=== PATIENT | male | born 1970 | race Caucasian/White ===

== ENCOUNTER → 2019-07-16 07:33 | Outpatient (CLI) | payer BC, SELFPAY ==
[2019-07-16 08:29] LABS: Alanine Aminotransferase 29 IU/L (<50); Albumin 4.4 g/dL (3.5-5.0); Albumin Globulin Ratio 1.6 (1.0-2.8); Alkaline Phosphatase 61 U/L (38-126); Aspartate Aminotransferase 32 IU/L (17-59); Bilirubin Total 0.7 mg/dL (0.2-1.3); Blood Urea Nitrogen 18 mg/dL (9-20); Calcium 9.1 mg/dL (8.4-10.2); Carbon Dioxide 30 mmol/L (22-32); Chloride 101 mmol/L (98-107); Cholesterol 196 mg/dL (140-199); Estimated Glomerular Filt Rate > 60.0 mL/min (>60); Globulin 2.7 g/dL (1.7-4.1); Glucose 89 mg/dL (70-100); HDL Cholesterol 41 mg/dL (40-60); HEMOLYSIS < 15 (0-50); LDL Cholesterol Calculated 141 mg/dL (<100); Potassium 3.8 mmol/L (3.4-5.1); Sodium 139 mmol/L (137-145); Total Protein 7.1 g/dL (6.3-8.2); Triglycerides 70 mg/dL (35-150)
== END ==
PROVIDERS: PCP Internal Medicine; Visit Provider Internal Medicine
DX: I10 Essential (primary) hypertension (principal); Z13.1 Encounter for screening for diabetes mellitus; Z13.220 Encounter for screening for lipoid disorders; Z13.6 Encounter for screening for cardiovascular disorders
CPT/HCPCS: 36415; 80053; 80061

== ENCOUNTER → 2020-01-29 07:56 | Outpatient (CLI) | payer BC, SELFPAY ==
--- NOTE | 2020-01-29 07:57 | DI.MRI.S_ITS ---
PROCEDURE: MR KNEE RT WO CON INDICATIONS: right knee TECHNIQUE: Noncontrast sagittal PD fast spin echo and T2 fast spin echo with fat saturation, sagittal 3-D FLASH with fat saturation; coronal T1 spin echo and PD fast spin echo with fat saturation, and axial PD fast spin echo with fat saturation through the knee. COMPARISON: None. FINDINGS: Image quality: Excellent. Menisci: Complex oblique tear is seen involving posterior horn of medial meniscus extending to both superior and inferior articulating surfaces. There is no evidence of focal lateral meniscal tear. Peripheral displacement of medial meniscus is seen bowing medial collateral ligament. The meniscal root ligaments appear intact. Cruciate ligaments: The anterior and posterior cruciate ligaments appear intact. Medial structures: There is low to moderate grade MCL sprain. The posterior oblique ligament, semimembranosus tendon insertions, oblique popliteal ligament, and meniscocapsular junction appear intact. Visualized portions of the pes anserinus tendons appear normal. No abnormal bursal fluid. Lateral structures: The lateral collateral ligament, long and short heads of the biceps femoris tendon appear intact. The popliteus tendon appears normal; the popliteofibular ligament appears intact. The posterosuperior and anteroinferior popliteomeniscal fascicles appear intact. The arcuate and fabellofibular ligaments appear intact, on either side of the lateral inferior geniculate artery. Iliotibial band appears normal. Anterior structures: The quadriceps and patellar tendons appear intact. Patellar alignment is normal. No femoral trochlear dysplasia or ventral trochlear prominence. No edema in the infrapatellar fat pad. Bones and cartilage: No bone marrow contusions or fractures. The cartilage of the medial and lateral femorotibial compartments appears normal in thickness. 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 Joint space: There is small amount of knee joint fluid, no gross intra-articular loose body. 3 x 2.6 x 5.7 cm popliteal cyst is seen. Normal appearing synovial plicae are incidentally noted. IMPRESSION: 1. Complex tear involving posterior horn of medial meniscus extending to both superior and inferior articulating surfaces. No evidence of focal lateral meniscal tear. 2. Cruciate ligaments are intact. Low to moderate grade MCL sprain. 3. 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 4. Small amount of joint fluid. Popliteal cyst as above. Dictated by: Dorian Hyde M.D. on 01/30/2020 at 11:29 Approved by: Dorian Hyde M.D. on 01/30/2020 at 11:34
== END ==
PROVIDERS: PCP Internal Medicine; Referring Provider Internal Medicine; Visit Provider Internal Medicine
DX: M25.561 Pain in right knee (principal); S83.231A Complex tear of medial meniscus, current injury, right knee, initial encounter; S83.411A Sprain of medial collateral ligament of right knee, initial encounter; M22.41 Chondromalacia patellae, right knee; M71.21 Synovial cyst of popliteal space [Baker], right knee
CPT/HCPCS: 73721

== ENCOUNTER → 2020-10-19 13:24 | Outpatient (CLI) | payer OTHER, SELFPAY ==
[2020-10-19] MEDS: COVID-19 VACC #1, MRNA(MOD) 100 MCG/0.5 ML VIAL IM (13:28)
== END ==
PROVIDERS: PCP Internal Medicine; Visit Provider Internal Medicine
DX: Z23 Encounter for immunization (principal)
CPT/HCPCS: 0011A; 91301

== ENCOUNTER → 2020-11-07 09:33 | Outpatient (CLI) | payer OTHER, SELFPAY ==
[2020-11-07 10:23] LABS: Alanine Aminotransferase 27 IU/L (<50); Albumin 4.3 g/dL (3.5-5.0); Albumin Globulin Ratio 1.4 (1.0-2.8); Alkaline Phosphatase 55 U/L (38-126); Aspartate Aminotransferase 32 IU/L (17-59); BUN Creatinine Ratio 15.7 (6-22); Bilirubin Total 0.6 mg/dL (0.2-1.3); Blood Urea Nitrogen 13 mg/dL (9-20); Calcium 9.3 mg/dL (8.4-10.2); Carbon Dioxide 30 mmol/L (22-32); Chloride 104 mmol/L (98-107); Estimated Glomerular Filt Rate > 60.0 mL/min (>60); Glucose 102 mg/dL (70-100); HEMOLYSIS < 15 (0-50); Potassium 4.4 mmol/L (3.4-5.1); Sodium 140 mmol/L (137-145); Total Protein 7.3 g/dL (6.3-8.2)
[2020-11-07 10:38] LABS: Free T4, Direct Thyroxine 0.98 ng/dL (0.78-2.19)
[2020-11-07 10:52] LABS: Thyroid Stimulating Hormone 2.39 uIU/mL (0.47-4.68)
== END ==
PROVIDERS: PCP Internal Medicine; Referring Provider Internal Medicine; Visit Provider Internal Medicine
DX: I10 Essential (primary) hypertension (principal)
CPT/HCPCS: 36415; 80053; 84439; 84443

== ENCOUNTER → 2020-11-16 13:16 | Outpatient (CLI) | payer OTHER, SELFPAY ==
[2020-11-16] MEDS: COVID-19 VACC #2, MRNA(MOD) 100 MCG/0.5 ML VIAL IM (13:18)
== END ==
PROVIDERS: PCP Internal Medicine; Visit Provider Internal Medicine
DX: Z23 Encounter for immunization (principal)
CPT/HCPCS: 0012A; 91301

== ENCOUNTER 2021-10-30 19:28 | Inpatient (IN) | payer OTHER, SELFPAY ==
[2021-10-30] VITALS (15 sets, daily range): BP systolic 129–158; BP diastolic 78–100; PULSE 68–124; RESP 12–37; TEMP 36.8–37.3; O2SAT 2–100; BMI 26.5
--- NOTE | 2021-10-30 | DI.ECHO.S_ITS ---
[facility] +---------+ : : [address] : : : : [id number] : : : : Phone: [phone]+ Echocardiogram Report + + :Name: TALAT GRAVES Study Date: 10/31/2021 Height: 70 in : :[facility] ReadingLocation: Weight: 185 lb : : Gender: Male BSA: 2.0 m2 : :: 1970 Age: 50 yrs BP: 119/69 mmHg: :Reason For Study: ADMITTED FOR INFARCTED SMALL BOWEL, RULE OUT : :EMBOLISM : :Ordering Physician: ALEXANDREA, : :CESAR Performed By: Dilcia Arias : :Referring: CESRA LECHUGA : + + Interpretation Summary A two-dimensional transthoracic echocardiogram with color flow and Doppler was performed in limited views only to assess rule out embolism. The left ventricle is normal in size and wall thickness. The ejection fraction is estimated to be 65-70%. No LV thrombus. The right ventricle is normal in size and function. Injection of contrast documented no interatrial shunt. There is no Doppler evidence for an interatrial shunt. Procedure: A two-dimensional transthoracic echocardiogram with color flow and Doppler was performed in limited views only to assess rule out embolism. The study quality was technically adequate. There is no prior echocardiogram noted for this patient. A saline contrast injection was performed to assess for cardiac shunting. The patient was in sinus rhythm with heart rates between 76-80 bpm during the exam. Left Ventricle: The left ventricle is normal in size and wall thickness. There is no thrombus. The ejection fraction is estimated to be 65-70%. There are no focal wall motion abnormalities. Diastolic function could not be accurately assessed due to unobtainable data. Right Ventricle: The right ventricle is normal in size and function. Atria: The left atrium is mildly dilated. Right atrial size is normal. There is no Doppler evidence for an interatrial shunt. Injection of contrast documented no interatrial shunt. Mitral Valve: The mitral valve leaflets appear borderline thickened, but open well. No color Doppler was performed. Aortic Valve: The aortic valve is trileaflet. The aortic valve opens well. Tricuspid Valve: The tricuspid valve is normal in structure and function. There is trace tricuspid regurgitation. Pericardium/ Pleura There is no pericardial effusion. There is no pleural effusion. MMode/2D Measurements & Calculations LVIDd: 5.6 cm LA A2 area: 24.4 cm2 LVIDs: 3.4 cm LA A4 area: 19.2 cm2 FS: 38.6 % LA length (vol): 5.1 cm IVSd: 0.92 cm LA vol: 77.6 ml LVPWd: 0.96 cm LA vol index: 38.4 ml/m2 LV cage. diameter/BSA (cm/m^2): 2.8 LV sys. diameter/BSA (cm/m^2): 1.7 RA long axis: 5.2 cm RVD1 (basal): 3.0 cm RA area: 15.9 cm2 TAPSE: 2.5 cm RA vol: 40.8 ml RA : 20.2 ml/m2 Reading Physician:01:18 PM
--- NOTE | 2021-10-30 | PATH_ITS ---
[facility] Accession Number: [id number] . 01 Material submitted: . small bowel - SMALL BOWEL . 02 Diagnosis: Small Bowel, Biopsy: Segment of small bowel with features of mucosal ischemia. Histologically viable margins of resection. Negative for dysplasia or malignancy. MRV 11/05/2021 1234 Local . 02 Electronically signed: . Otoniel Bob MD, PhD, Pathologist NPI- [id number] . 01 Gross description: . The specimen is received in formalin, labeled small bowel, and consists of a segment of unoriented bowel measuring 22.5 cm length by 2.5 cm diameter, with an average wall thickness of 0.2 cm. One bowel margin is arbitrarily assigned as proximal, and the opposing bowel margin is arbitrarily assigned as distal. The specimen's entire external surface is dusky, consistent with ischemic changes. Opening the specimen reveals hemorrhagic to dusky mucosa with normal folds. No other lesions or masses are identified grossly. There is grossly viable tissue at the distal margin. The tissue at the proximal margin is dusky. The specimen is representatively submitted as follows: . A1: Proximal margin, shaved, en face. A2: Distal margin, shaved, en face. A3: Biological Technician cross sections of specimen. ([id number]) /MRV 11/02/2021 1148 Local . 02 Pathologist provided ICD-10: K55.029 . 02 CPT . 831056 Specimen Comment: A courtesy copy of this report has been sent to [phone] Performed at: 01 [facility] [address] [place] [address], [place], [place] [id number] MD Levon Anthony MD Phone: [phone] Performed at: 02 [facility] [address] [place] [id number] MD Carlita Palmer MD Phone: [phone]
--- NOTE | 2021-10-30 19:42 | DI.CT.S_ITS ---
PROCEDURE: CT ABDOMEN PELVIS W CON INDICATIONS: acute onset severe mid abd pain TECHNIQUE: After the administration of intravenous contrast, axial sections acquired from the lung bases to the pubic symphysis. Coronal and sagittal reformats were performed. For radiation dose reduction, the following was used: automated exposure control, adjustment of mA and/or kV according to patient size. COMPARISON: None. FINDINGS: Image quality: Excellent. Lung bases: Lung bases are clear. Small hiatal hernia. Heart: No significant findings. ABDOMEN: Liver: Unremarkable Gallbladder: Unremarkable Biliary ducts: Unremarkable. Pancreas: Unremarkable. Spleen: Unremarkable. Adrenal Glands: Unremarkable. Kidneys and Ureters: Unremarkable. Stomach and Bowel: There is small bowel dilatation with wall edema and mesenteric edema noted in the upper right abdomen with differential air-fluid level. A transition point is noted in the right mid abdomen. This is best seen on coronal image 25/series 4. Otherwise, there is some prominence of the proximal small bowel. Stomach and colon appear unremarkable. Peritoneum: No abnormal intraperitoneal fluid. No free air. Ventral Wall: No hernias. Abdominal Nodes: No retroperitoneal or mesenteric adenopathy by size criteria. Vessels: Aorta and inferior vena cava are normal in size. PELVIS: Pelvic Organs: Unremarkable. Bladder: Unremarkable. Pelvic Nodes: No enlarged lymph nodes. Miscellaneous: No hernias are seen. Bones: Unremarkable. IMPRESSION: 1. Moderate small-bowel obstruction with transition point noted in the right mid abdomen. There is associated mesenteric edema and wall inflammation. 2. Small hiatal hernia. Findings discussed with Dr. Krishnamurthy at 2018hrs. Dictated by: Hima Antony M.D. on 10/30/2021 at 20:03 Approved by: Hima Antony M.D. on 10/30/2021 at 20:18
--- NOTE | 2021-10-30 19:43 | ED_ITS ---
HPI - General Adult General Chief complaint: Abdominal Pain Stated complaint: abd pain x45 min Time Seen by Provider: 10/30/21 19:41 Source: patient Mode of arrival: Ambulatory History of Present Illness HPI narrative: 50-year-old gentleman history of hypertension and depression with having a usual day today, went for a run had dinner of steak and salad and then developed severe mid abdominal pain dramatic onset causing significant diaphoresis, he vomited all of dinner in comes into the ER for further evaluation. He is quite literally, writhing in pain with firm belly and concerns for an acute abdomen. He denies any recent fever, cough, chills, chest pain, palpitation, diarrhea, constipation. Related Data Home Medications Medication Instructions Recorded Confirmed amlodipine 10 mg tablet 10 mg PO QPM 10/30/21 10/30/21 Previous Rx's Medication Instructions Recorded citalopram 40 mg tablet 40 mg PO QDAY #90 tab 09/10/21 bupropion HCl 150 mg 24 hr tablet, 150 mg PO QAM #30 tab 09/17/21 extended release Allergies Allergy/AdvReac Type Severity Reaction Status Date / Time No Known Drug Allergies Allergy Verified 10/30/21 21:06 Review of Systems Review of Systems Narrative: Remainder of complete review of systems is otherwise unremarkable except for that included in the HPI. 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 travel history: recent ([place]) leisure activities: exercise (Running) Smoking Status: Never smoker Tobacco: How many years used: 0 quit status: quit date established (Never Started) second hand exposure: Yes (Childhood) alcohol intake: never substance use type: does not use Smoking Status: Never smoker Exam Initial Vital Signs Initial Vital Signs: Vital Signs Temperature 98.5 F 10/30/21 19:33 Pulse Rate 122 H 10/30/21 19:33 Respiratory Rate 22 10/30/21 19:33 Blood Pressure 158/100 H 10/30/21 19:33 Pulse Oximetry 98 10/30/21 19:33 General: Severe pain, pale diaphoretic trying to cooperate but having difficulty lying still on the stretcher secondary to pain HEENT: Moist mucous membranes, normal sclera with reactive pupils, Respiratory: Lungs are clear to auscultation, no wheezing no rales no rhonchi. Full and symmetrical air movement Cardiac: Tachycardia but otherwise Regular rate and rhythm no murmurs no bruits Abdomen: Significantly tender with the majority pain through the central part of the belly with guarding, no bowel tones Skin: Pale and diaphoretic,, no rashes Neurologic: Grossly neurologically intact with no obvious asymmetries or abnormalities Extremities: No trauma, well perfused Psych: Cooperative, appropriate insight and affect Course Orders Ordered: ED Orders 10/30/21 19:42 CT abdomen pelvis w con Stat 10/30/21 19:50 Complete Blood Count AUTO DIFF Stat Comprehensive Metabolic Panel Stat Lipase Stat Partial Thromboplastin Time Stat Prothrombin Time INR Stat 10/30/21 20:05 COVID19 -Nasal RAPID/Pre-Proc Stat Amlodipine Besylate (Amlodipine 5 Mg Tablet) 10 mg PO QPM [facility] Bupropion HCl (Bupropion Xl 150 Mg Tab) 150 mg PO DAILY [facility] Last Admin: 10/31/21 01:27 Dose: Not Given Documented by: GILBERTO Citalopram Hydrobromide (Citalopram 10 Mg Tablet) 40 mg PO DAILY [facility] Enoxaparin Sodium (Enoxaparin 30 Mg/0.3 Ml Syringe) 40 mg SUBCUT DAILY [facility] Hydromorphone HCl (Hydromorphone 0.5 Mg Inj) 1 mg IV Q15MIN PRN PRN Reason: Pain, Last Admin: 10/30/21 21:16 Dose: 1 mg Documented by: Admin: 10/30/21 20:47 Dose: 1 mg Documented by: CLEVE Hydromorphone HCl (Hydromorphone 0.5 Mg Inj) 0.5 mg IV Q2H PRN PRN Reason: Breakthrough pain only (8-10) Lactated Ringer's (Lactated Ringers) 1,000 mls @ 42 mls/hr IV NOW ONE Stop: 10/31/21 21:38 Last Infusion: 10/30/21 23:44 Dose: 0 mls/hr Documented by: Admin: 10/30/21 22:15 Dose: 42 mls/hr Documented by: Infusion: 10/30/21 22:15 Dose: 42 mls/hr Documented by: Admin: 10/30/21 21:30 Dose: 42 mls/hr Documented by: ALEXA Lactated Ringer's (Lactated Ringers) 1,000 mls @ 100 mls/hr IV CONT [facility] Last Admin: 10/31/21 00:51 Dose: 100 mls/hr Documented by: GILBERTO Ketorolac Tromethamine (Ketorolac 30 Mg/Ml Vial) 30 mg IV Q6H [facility] Stop: 11/02/21 22:59 Last Admin: 10/31/21 01:36 Dose: 30 mg Documented by: GILBERTO Naloxone HCl (Naloxone 0.4 Mg/Ml Vial) 0.2 mg IV Q2MIN PRN PRN Reason: Opiate Reversal Ondansetron HCl (Ondansetron 4 Mg/2 Ml Inj) 4 mg IV Q8HR PRN PRN Reason: Nausea And Vomiting Oxycodone HCl (Oxycodone Ir 5 Mg Tablet) 5 mg PO Q4HR PRN PRN Reason: Pain, Moderate (4-6) Discontinued Medications Bupivacaine HCl 30 ml/ (Epinephrine HCl 0.15 mg) 0 ml INJ NOW ONE Stop: 10/30/21 22:08 Last Admin: 10/30/21 22:08 Dose: 30 ml Documented by: CEDRICK Enoxaparin Sodium (Enoxaparin 30 Mg/0.3 Ml Syringe) 30 mg SUBCUT DAILY [facility] Hydromorphone HCl (Hydromorphone 1 Mg Inj) 1 mg IV NOW ONE Stop: 10/30/21 19:42 Last Admin: 10/31/21 02:02 Dose: Not Given Documented by: GILBERTO Hydromorphone HCl (Hydromorphone 1 Mg Inj) 1 mg IV NOW ONE Stop: 10/30/21 20:15 Last Admin: 10/30/21 20:28 Dose: 1 mg Documented by: OSCAR Sodium Chloride (Normal Saline 0.9%) 1,000 mls @ 1,000 mls/hr IV BOLUS ONE Stop: 10/30/21 20:40 Last Admin: 10/30/21 20:29 Dose: 1,000 mls/hr Documented by: OSCAR Piperacillin Sod/Tazobactam (Sod 4.5 gm/ Sodium Chloride) 100 mls @ 200 mls/hr IV NOW ONE Stop: 10/30/21 20:40 Last Infusion: 10/30/21 21:29 Dose: 0 mls/hr Documented by: Admin: 10/30/21 21:02 Dose: 200 mls/hr Documented by: OSCAR Non-Formulary Medication (Citalopram) 40 mg PO QDAY EMMANUEL Ondansetron HCl (Ondansetron 4 Mg/2 Ml Inj) 4 mg IV NOW ONE Stop: 10/30/21 19:39 Last Admin: 10/31/21 02:02 Dose: Not Given Documented by: GILBERTO Ondansetron HCl (Ondansetron 4 Mg/2 Ml Inj) 4 mg IV NOW ONE Stop: 10/30/21 19:42 Last Admin: 10/30/21 21:16 Dose: 4 mg Documented by: OSCAR Vital Signs Vital signs: Vital Signs - 8 hr 10/30/21 19:33 10/30/21 19:38 10/30/21 20:00 Temperature 98.5 F 99.1 F Pulse Rate 122 H 105 H 74 Respiratory Rate 22 12 Blood Pressure 158/100 H 131/80 Pulse Oximetry 98 96 100 10/30/21 20:02 10/30/21 20:23 10/30/21 20:30 Temperature Pulse Rate 73 75 68 Respiratory Rate 37 H 22 17 Blood Pressure 154/98 H 129/89 Pulse Oximetry 99 100 99 10/30/21 20:34 10/30/21 21:00 Temperature Pulse Rate 75 71 Respiratory Rate 36 H 28 H Blood Pressure 151/92 H Pulse Oximetry 100 100 Medical Decision Making Lab Data Result diagrams: 10/30/21 19:50 10/30/21 19:50 Labs: Lab Results 10/30/21 10/30/21 10/30/21 Range/Units 19:50 19:50 19:50 WBC 6.6 (4.5-11.0) X10^3/uL RBC 5.13 (4.5-5.9) X10^6/uL Hgb 14.9 (13.5-17.5) g/dL Hct 42.6 (41-53) % MCV 83.1 (80-100) fL MCH 29.1 (26-34) PG MCHC 35.0 (30-36) % RDW 12.7 (11.6-14.8) % Plt Count 220 (150-400) X10^3/uL Neut % (Auto) 49.2 L (50-75) % Lymph % (Auto) 37.1 (25-40) % [place] % (Auto) 9.7 (3-14) % Eos % (Auto) 3.2 (2-4) % Baso % (Auto) 0.8 (0-2) % Neut # (Auto) 3200 (8374-0620) /uL Lymph # (Auto) 2400 (7426-5669) /uL [place] # (Auto) 600 (0-900) /uL Eos # (Auto) 200 (0-450) /uL Baso # (Auto) 100 (0-100) /uL PT 11.1 (10.1-12.7) SECONDS INR 1.0 (0.9-1.3) APTT 33 (26.4-36.2) SECONDS Sodium 137 (137-145) mmol/L Potassium 3.5 (3.4-5.1) mmol/L Chloride 104 (98-107) mmol/L Carbon Dioxide 21 L (22-32) mmol/L BUN 19 (9-20) mg/dL Creatinine 1.20 (0.66-1.25) mg/dL Estimated GFR > 60 (>60) mL/min BUN/Creatinine Ratio 15.8 (6-22) Glucose 119 H (70-100) mg/dL Calcium 9.0 (8.4-10.2) mg/dL Total Bilirubin 0.6 (0.2-1.3) mg/dL AST 58 (17-59) IU/L ALT 29 (<50) IU/L Alkaline Phosphatase 62 (38-126) U/L Total Protein 7.5 (6.3-8.2) g/dL Albumin 4.6 (3.5-5.0) g/dL Globulin 2.9 (1.7-4.1) g/dL Albumin/Globulin Ratio 1.6 (1.0-2.8) Lipase 303 H (23-300) U/L SARS-CoV-2 (PCR) (Negative) 10/30/21 Range/Units 20:05 WBC (4.5-11.0) X10^3/uL RBC (4.5-5.9) X10^6/uL Hgb (13.5-17.5) g/dL Hct (41-53) % MCV (80-100) fL MCH (26-34) PG MCHC (30-36) % RDW (11.6-14.8) % Plt Count (150-400) X10^3/uL Neut % (Auto) (50-75) % Lymph % (Auto) (25-40) % [place] % (Auto) (3-14) % Eos % (Auto) (2-4) % Baso % (Auto) (0-2) % Neut # (Auto) (2904-7766) /uL Lymph # (Auto) (0249-4485) /uL [place] # (Auto) (0-900) /uL Eos # (Auto) (0-450) /uL Baso # (Auto) (0-100) /uL PT (10.1-12.7) SECONDS INR (0.9-1.3) APTT (26.4-36.2) SECONDS Sodium (137-145) mmol/L Potassium (3.4-5.1) mmol/L Chloride (98-107) mmol/L Carbon Dioxide (22-32) mmol/L BUN (9-20) mg/dL Creatinine (0.66-1.25) mg/dL Estimated GFR (>60) mL/min BUN/Creatinine Ratio (6-22) Glucose (70-100) mg/dL Calcium (8.4-10.2) mg/dL Total Bilirubin (0.2-1.3) mg/dL AST (17-59) IU/L ALT (<50) IU/L Alkaline Phosphatase (38-126) U/L Total Protein (6.3-8.2) g/dL Albumin (3.5-5.0) g/dL Globulin (1.7-4.1) g/dL Albumin/Globulin Ratio (1.0-2.8) Lipase (23-300) U/L SARS-CoV-2 (PCR) Negative (Negative) Imaging Data CT scan - abdomen/pelvis: Radiologist's Impression: ?FINDINGS:? Image quality:? Excellent.? ? Lung bases:? Lung bases are clear.? Small hiatal hernia. Heart:? No significant findings. ? ABDOMEN: Liver:? Unremarkable Gallbladder:? Unremarkable Biliary ducts:? Unremarkable.? ? Pancreas:? Unremarkable.? ? Spleen:? Unremarkable.? ? Adrenal Glands:? Unremarkable.? ? Kidneys and Ureters:? Unremarkable.? ? ? Stomach and Bowel:? There is small bowel dilatation with wall edema and mesenteric edema noted in the upper right abdomen with differential air-fluid level.? A transition point is noted in the right mid abdomen.? This is best seen on coronal image 25/series 4. Otherwise, there is some prominence of the proximal small bowel.? Stomach and colon appear unremarkable. Peritoneum:? No abnormal intraperitoneal fluid.? No free air.? ? Ventral Wall: ? No hernias.? Abdominal Nodes:? No retroperitoneal or mesenteric adenopathy by size criteria.? Vessels:? Aorta and inferior vena cava are normal in size.? ? PELVIS: Pelvic Organs:? Unremarkable.? ? Bladder:? Unremarkable.? ? Pelvic Nodes: No enlarged lymph nodes.? Miscellaneous: No hernias are seen. ? ? ? Bones:? Unremarkable. ? ? ? IMPRESSION:? ? 1. Moderate small-bowel obstruction with transition point noted in the right mid abdomen. ?There is associated mesenteric edema and wall inflammation.? ? 2. Small hiatal hernia. ? Findings discussed with Dr. Krishnamurthy at 2018hrs.? ? Dictated by: Hima Antony M.D. on 10/30/2021 at 20:03? ?? [facility] Narrative Medical decision making narrative: Otherwise healthy 50-year-old gentleman with abrupt onset severe abdominal pain with CT scan showing acute small bowel obstruction with bowel wall inflammation. Pain has been difficult to control. We have been using moderate doses of Dilaudid and have added ketamine as a pain adjunct. Case is reviewed with Dr. Naylor who will be coming in to examine the patient with the expectation of exploratory laparotomy. Dose of Zosyn is given in the emergency department, COVID testing is done, findings are reviewed with patient he understands need for surgery and questions are answered. Discharge Plan Departure Patient Disposition: Admitted to Surgery Clinical Impression: Complete obstruction of small intestine Admit Date/Time: 10/30/21 21:14 Admit Provider: Amrik Naylor
[2021-10-30 19:56] LABS: Add Manual Diff / Slide Review NO; Basophils Absolute Auto 100 /uL (0-100); Basophils Percent Auto 0.8 % (0-2); Eosinophils Absolute Auto 200 /uL (0-450); Eosinophils Percent Auto 3.2 % (2-4); Hematocrit 42.6 % (41-53); Hemoglobin 14.9 g/dL (13.5-17.5); Lymphocytes Absolute Auto 2400 /uL (1100-4500); Lymphocytes Percent Auto 37.1 % (25-40); Mean Corpuscular Hemoglobin 29.1 PG (26-34); Mean Corpuscular Volume 83.1 fL (80-100); Monocytes Absolute Auto 600 /uL (0-900); Monocytes Percent Auto 9.7 % (3-14); Neutrophils Absolute Auto 3200 /uL (1500-7000); Neutrophils Percent Auto 49.2 % (50-75); Platelet Count 220 X10^3/uL (150-400); Red Blood Cell Count 5.13 X10^6/uL (4.5-5.9); Red Cell Distribution Width 12.7 % (11.6-14.8); White Blood Cell Count 6.6 X10^3/uL (4.5-11.0)
[2021-10-30] MEDS: HYDROMORPHONE 2 MG INJ (20:03)
--- NOTE | 2021-10-30 20:03 | PC.NURSE ---
pt arrives to room from triage diaphoretic and appearing to be in extreme pain guarding abd and yelling in pain, verbal order for 2mg Dilaudid IV by MD, pt to CT scan immediately
[2021-10-30 20:10] LABS: Prothrombin Time 11.1 SECONDS (10.1-12.7)
[2021-10-30 20:13] LABS: PTT Partial Thromboplastin Tim 33 SECONDS (26.4-36.2)
[2021-10-30 20:16] LABS: Alanine Aminotransferase 29 IU/L (<50); Albumin 4.6 g/dL (3.5-5.0); Albumin Globulin Ratio 1.6 (1.0-2.8); Alkaline Phosphatase 62 U/L (38-126); Aspartate Aminotransferase 58 IU/L (17-59); BUN Creatinine Ratio 15.8 (6-22); Bilirubin Total 0.6 mg/dL (0.2-1.3); Blood Urea Nitrogen 19 mg/dL (9-20); Carbon Dioxide 21 mmol/L (22-32); Chloride 104 mmol/L (98-107); Estimated Glomerular Filt Rate > 60 mL/min (>60); Globulin 2.9 g/dL (1.7-4.1); Glucose 119 mg/dL (70-100); HEMOLYSIS < 15 (0-50); Lipase 303 U/L (23-300); Potassium 3.5 mmol/L (3.4-5.1); Sodium 137 mmol/L (137-145); Total Protein 7.5 g/dL (6.3-8.2)
[2021-10-30] MEDS: HYDROMORPHONE 1 MG INJ IV (20:28)
[2021-10-30] MEDS: KETAMINE 50 MG/5 ML *SYRINGE 10 MG IV (20:28)
[2021-10-30] MEDS: SODIUM CHLORIDE 0.9% 1,000 ML 1000 ML IV (20:29)
--- NOTE | 2021-10-30 20:29 | PC.NURSE ---
pt still in pain despite 2mg Dilaudid, 10mg ketamine and additional 1mg Dilaudid ordered by
[2021-10-30 20:36] LABS: COVID19 -Nasal RAPID Negative (Negative)
[2021-10-30] MEDS: HYDROMORPHONE 0.5 MG INJ 1 MG IV ×2 (20:47→21:16)
[2021-10-30] MEDS: PIPERACILLIN/TAZO 4.5 GM in SODIUM CHLORIDE 0.9% 100 ML 200 ML IV (21:02)
--- NOTE | 2021-10-30 21:11 | SUR.OPER ---
Supine on padded OR bed, head on pillow, arms secured on padded arm boards at <90 degrees abduction, legs uncrossed, safety belt at thigh, tape over blanket over lower legs.
--- NOTE | 2021-10-30 21:14 | PM.HP.1 ---
History of Present Illness History of Present Illness Date Patient Seen: 10/30/21 Chief complaint: abd pain x45 min Narrative: Richard Cheung is a healthy 50-year-old man who presented to the emergency department with acute onset of severe mid abdominal pain. He has associated nausea emesis. Admission afebrile, heart rate 120, blood pressure 150/90, respiratory rate 20, WBC 7 hematocrit [address] abdomen pelvis demonstrates a small-bowel obstruction with a transition point in the right lower quadrant with associated mesenteric edema. without free air. He has never had previous abdominal surgery no known intestinal disorders. 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) Surgical History No pertinent past surgical history Family & Social History Family History Father Adenomatous polyp of colon Social History: household members spouse lives independently Yes caregiver/support person No Tobacco & Substance use: Smoking Status Never smoker alcohol intake never Meds Home Medications and Allergies Home Medications Medication Instructions Recorded Confirmed Type citalopram 40 mg tablet 40 mg PO QDAY #90 tab 09/10/21 10/30/21 Rx bupropion HCl 150 mg 24 hr tablet, 150 mg PO QAM #30 tab 09/17/21 10/30/21 Rx extended release amlodipine 10 mg tablet 10 mg PO QPM 10/30/21 10/30/21 History Allergies Allergy/AdvReac Type Severity Reaction Status Date / Time No Known Drug Allergies Allergy Verified 10/30/21 21:06 Exam Vital Signs (past 8 hours): - 10/30/21 19:33 10/30/21 20:00 10/30/21 20:02 Temperature 98.5 F Pulse Rate 122 H 74 73 Respiratory Rate 22 37 H Blood Pressure 158/100 H 154/98 H Pulse Oximetry 98 100 99 10/30/21 20:23 10/30/21 20:30 10/30/21 20:34 Temperature Pulse Rate 75 68 75 Respiratory Rate 22 17 36 H Blood Pressure 129/89 151/92 H Pulse Oximetry 100 99 100 10/30/21 21:00 Temperature Pulse Rate 71 Respiratory Rate 28 H Blood Pressure Pulse Oximetry 100 Oxygen Delivery Method Room Air Narrative Exam Narrative: General adult male alert oriented in acute distress Chest mildly labored respiration Abdomen diffuse peritonitis Extremities warm well perfused Objective Labs Result Diagrams: 10/30/21 19:50 10/30/21 19:50 Labs: Laboratory Results - last 24 hr 10/30/21 10/30/21 10/30/21 19:50 19:50 19:50 WBC 6.6 RBC 5.13 Hgb 14.9 Hct 42.6 MCV 83.1 MCH 29.1 MCHC 35.0 RDW 12.7 Plt Count 220 Neut % (Auto) 49.2 L Lymph % (Auto) 37.1 [place] % (Auto) 9.7 Eos % (Auto) 3.2 Baso % (Auto) 0.8 Neut # (Auto) 3200 Lymph # (Auto) 2400 [place] # (Auto) 600 Eos # (Auto) 200 Baso # (Auto) 100 PT 11.1 INR 1.0 APTT 33 Sodium 137 Potassium 3.5 Chloride 104 Carbon Dioxide 21 L BUN 19 Creatinine 1.20 Estimated GFR > 60 BUN/Creatinine Ratio 15.8 Glucose 119 H Calcium 9.0 Total Bilirubin 0.6 AST 58 ALT 29 Alkaline Phosphatase 62 Total Protein 7.5 Albumin 4.6 Globulin 2.9 Albumin/Globulin Ratio 1.6 Lipase 303 H SARS-CoV-2 (PCR) 10/30/21 20:05 WBC RBC Hgb Hct MCV MCH MCHC RDW Plt Count Neut % (Auto) Lymph % (Auto) [place] % (Auto) Eos % (Auto) Baso % (Auto) Neut # (Auto) Lymph # (Auto) [place] # (Auto) Eos # (Auto) Baso # (Auto) PT INR APTT Sodium Potassium Chloride Carbon Dioxide BUN Creatinine Estimated GFR BUN/Creatinine Ratio Glucose Calcium Total Bilirubin AST ALT Alkaline Phosphatase Total Protein Albumin Globulin Albumin/Globulin Ratio Lipase SARS-CoV-2 (PCR) Negative Assessment & Plan Assessment and plan (1) Complete obstruction of small intestine: Status: Acute Assessment & Plan narrative: 50-year-old healthy man no previous abdominal surgery with an acute abdomen and small-bowel obstruction. I reviewed his CT abdomen pelvis which demonstrates a small-bowel obstruction there is a transition point in the right lower quadrant and associated mesenteric edema. No free air is visualized. Laboratory studies are unremarkable however he has gordo peritonitis on exam. I recommended that we proceed directly to the operating room for exploratory laparotomy, possible bowel resection. Operative risks including bleeding, infection, anastomotic leak, hernia formation damage to surrounding structures were discussed. His questions have been answered and he is in agreement with this plan. Time Spent With Patient Critical Care time: I spent a total of [] minutes of critical care time on this patient's care today; this time is exclusive of procedural time.
[2021-10-30] MEDS: ONDANSETRON 4 MG/2 ML INJ IV (21:16)
[2021-10-30] MEDS: LACTATED RINGERS 1,000 ML 42 ML IV ×2 (21:30→22:15)
[2021-10-30] MEDS: BUPIVACAINE 0.25% (PF) 30 ML, EPINEPHrine 0.15 MG INJ (22:08)
--- NOTE | 2021-10-30 23:12 | P.OP_ITS ---
Operative Date/Time/Diagnoses Date of procedure: 10/30/21 Time of procedure: 23:13 Pre-op diagnosis: Small-bowel obstruction Post-op diagnosis: other (small bowel obstruction, small bowel infarction) Procedure & Clinicians Procedure: Exploratory laparotomy Small bowel resection Same procedure as scheduled: Yes Indications: 50-year-old male no prior abdominal surgery presented with an acute small bowel obstruction and peritonitis Surgeon: Amrik Ocasio Yes if Unassisted: Yes Anesthesia Type: General Operative Notes Findings: Infarcted segment (12 cm) of mid small bowel. Proximal and distal to the area well perfused. Specimen(s): other (small bowel) Estimated Blood Loss (mL): 20 Procedure in detail: Patient was brought to the operating room placed supine on the table. Bilateral lower extremity compression devices were applied. General anesthesia was induced and he was intubated with an endotracheal tube. He received Zosyn prior skin incision. He was prepped and draped in sterile fashion. Time-out was performed. A lower midline incision was made. The abdomen was entered at raumatically. Upon entry to the abdomen there was some free serous fluid and the small bowel was then eviscerated. In the mid small bowel there was a 12 cm segment of infarcted small bowel which was kinked upon itself, there was no obvious adhesion. The bowel proximal and distal to this were grossly normal. The small bowel was then run from the ligament of Treitz to the terminal ileum the cecum was examined as well. The remainder of the bowel was normal. Small- bowel resection was then performed. Mesenteric window was formed and the bowel was divided with the VIOLA stapler 75 mm blue load proximal and distal to the area of infarction. The mesentery to this small bowel specimen was then resected using the LigaSure. An enterotomy was then made in each limb and a whum-tr-cowe functional and end anastomosis was formed with the 3rd fire of the VIOLA stapler. The anastomosis was inspected it was pre widely patent and hemostatic. The common open was then closed in a running fashion using 3-0 PDS suture. The suture line was then imbricated with silk suture in interrupted fashion. A silk stitch was then placed at the crotch of the anastomosis. Mesenteric defect was closed with silk suture. I tested the anastomosis its content moved across it without difficulty there was no evidence of leak it was tension-free and well perfused. The abdomen was then irrigated with saline and the lavage returned clear. The fascia was then closed in a running fashion using 1. PDS suture the subcutaneous tissue reapproximated with 3-0 Vicryl and skin closed with a running Monocryl followed by Dermabond Steri-Strips. Patient tolerated the operation well was transferred to recovery in stable condition. Complications: none Post-operative Condition: stable Disposition: Acute Care
--- NOTE | 2021-10-30 23:44 | SUR.PHASEI ---
Pre op verified with Kali RAMOS in ER that he did given zofran 8 mg. Post op pt arrived to PACU, airway self maintained, 02 added. Pt awoke, spoke with Dr. Naylor and pt's via telephone. Pt denied pain denied nausea.
[2021-10-31] VITALS (14 sets, daily range): BP systolic 106–119; BP diastolic 67–77; PULSE 75–105; RESP 13–20; TEMP 37.1–37.4; O2SAT 94–100; BMI 26.5
--- NOTE | 2021-10-31 00:09 | SUR.PHASEI ---
Report called to RICHARD Carter, pt transported up to room 204 via bed on 2L of nasal cannula o2. Bed low, locked SCD's on and call light in reach. Bed alarm on by FLAVIA Hudson
[2021-10-31] MEDS: LACTATED RINGERS 1,000 ML 100 ML IV (00:51)
--- NOTE | 2021-10-31 01:12 | PC.NURSE ---
Pt arrived on floor from PACU, alert and oriented x 4. No complaints of pain or discomfort. Vitals taken and WNL. NG tube hooked to intermittent suction at 80, draining clear green/brown fluid. Lungs clear bilaterally, on 2L O2 nc for the night. Incision on lower abdomen well approximated with derma flowers and sutures, CDI. Bowel tones active, denies N or V. No skin issues.
[2021-10-31] MEDS: KETOROLAC 30 MG/ML VIAL IV ×5 (01:36→22:33)
[2021-10-31 04:59] LABS: Add Manual Diff / Slide Review NO; Basophils Absolute Auto 0 /uL (0-100); Basophils Percent Auto 0.1 % (0-2); Eosinophils Absolute Auto 0 /uL (0-450); Eosinophils Percent Auto 0.1 % (2-4); Hematocrit 41.3 % (41-53); Hemoglobin 14.1 g/dL (13.5-17.5); Lymphocytes Absolute Auto 300 /uL (1100-4500); Lymphocytes Percent Auto 3.7 % (25-40); Mean Corpuscular HGB Conc 34.1 % (30-36); Mean Corpuscular Hemoglobin 29.2 PG (26-34); Mean Corpuscular Volume 85.7 fL (80-100); Monocytes Absolute Auto 200 /uL (0-900); Monocytes Percent Auto 2.3 % (3-14); Neutrophils Absolute Auto 8300 /uL (1500-7000); Neutrophils Percent Auto 93.8 % (50-75); Platelet Count 190 X10^3/uL (150-400); Red Blood Cell Count 4.82 X10^6/uL (4.5-5.9); Red Cell Distribution Width 13.1 % (11.6-14.8); White Blood Cell Count 8.8 X10^3/uL (4.5-11.0)
[2021-10-31 05:04] LABS: BUN Creatinine Ratio 18.3 (6-22); Blood Urea Nitrogen 17 mg/dL (9-20); Calcium 7.9 mg/dL (8.4-10.2); Carbon Dioxide 25 mmol/L (22-32); Chloride 106 mmol/L (98-107); Estimated Glomerular Filt Rate > 60 mL/min (>60); Glucose 134 mg/dL (70-100); HEMOLYSIS < 15 (0-50); Sodium 140 mmol/L (137-145)
[2021-10-31] MEDS: ENOXAPARIN 30 MG/0.3 ML SYRINGE 40 MG SUBCUT (08:53)
--- NOTE | 2021-10-31 09:23 | CM.DANOTE ---
DCP: Case received, EMR reviewed and met with patient. Introduced self and role. Was able to obtain information regarding his baseline activity level prior to hospitalization. DCP assessment completed with information currently available. Patient is a 50 year old male who admitted yesterday evening to the care of the hospitalist team. PCP: Dr. Jose Enrique Liang: [facility]. Patient came to the hospital via family vehicle secondary to abdominal discomfort after eating dinner. He had become diaphoretic, and vomited. Pain was severe, to the point of him coming to the hospital. Patient was diagnosed with moderate small-bowel obstruction. Patient had small bowel resection yesterday. Met with patient in his room. Patient is alert and oriented, pleasant. He was laying in bed, indicating, he was feeling better. Confirmed that he resides here in [place] with his spouse, Lizandro Quinn. He is independent at his baseline. P: DCP to continue to follow. Patient should be able to go home when he is deemed medically stable. Magdalena Sparrow RN/Plastic Boat Buffer Discharge Planning/Care Management Discharge Assessment Start: 10/31/21 09:20 Freq: Status: Active Protocol: Document 10/31/21 09:20 (Rec: 10/31/21 09:23 [id number]) Discharge Planning Assessment Assigned Night Worker Magdalena Sparrow RN/[employer] Advance Directives? No History Provided By Patient,Medical Record Has Patient been admitted in last 30 No days? Prior Living Arrangements House Household Members spouse Type of transporation used prior to Drives own vehicle admit Independent with ADL's Yes Is patient alert and oriented? Yes Caregiver for Another No Barriers to Discharge No Discharge Plan Home Transportation Arrangement Spouse Referrals Initiated None needed Whiteboard Updated in Patient Room with Yes name and ext. # of Night Worker Review Status In Process Next Review Type Continued Stay Review
[2021-10-31] MEDS: LACTATED RINGERS 1,000 ML 75 ML IV (12:30)
--- NOTE | 2021-10-31 15:58 | P.PN_ITS ---
Subjective Subjective Date Patient Seen: 10/31/21 Time Patient Seen: 15:59 Interval history: No nausea vomiting fever. No NG output. No flatus. Pain is well controlled Exam Vital Signs (past 8 hours): - 10/31/21 08:00 10/31/21 12:00 Respiratory Rate 18 Pulse Oximetry 98 98 Oxygen Delivery Method Room Air Oxygen Flow Rate 2 Narrative Exam Narrative: General adult male alert oriented no acute distress Chest nonlabored respirations Abdomen soft appropriately tender to palpation. A midline incision dressing is clean dry intact. Objective Labs Result Diagrams: 10/31/21 04:15 10/31/21 04:15 Labs: Laboratory Results - last 24 hr 10/30/21 10/30/21 10/30/21 19:50 19:50 19:50 WBC 6.6 RBC 5.13 Hgb 14.9 Hct 42.6 MCV 83.1 MCH 29.1 MCHC 35.0 RDW 12.7 Plt Count 220 Neut % (Auto) 49.2 L Lymph % (Auto) 37.1 [place] % (Auto) 9.7 Eos % (Auto) 3.2 Baso % (Auto) 0.8 Neut # (Auto) 3200 Lymph # (Auto) 2400 [place] # (Auto) 600 Eos # (Auto) 200 Baso # (Auto) 100 PT 11.1 INR 1.0 APTT 33 Sodium 137 Potassium 3.5 Chloride 104 Carbon Dioxide 21 L BUN 19 Creatinine 1.20 Estimated GFR > 60 BUN/Creatinine Ratio 15.8 Glucose 119 H Calcium 9.0 Total Bilirubin 0.6 AST 58 ALT 29 Alkaline Phosphatase 62 Total Protein 7.5 Albumin 4.6 Globulin 2.9 Albumin/Globulin Ratio 1.6 Lipase 303 H SARS-CoV-2 (PCR) 10/30/21 10/31/21 10/31/21 20:05 04:15 04:15 WBC 8.8 RBC 4.82 Hgb 14.1 Hct 41.3 MCV 85.7 MCH 29.2 MCHC 34.1 RDW 13.1 Plt Count 190 Neut % (Auto) 93.8 H D Lymph % (Auto) 3.7 L D [place] % (Auto) 2.3 L Eos % (Auto) 0.1 L Baso % (Auto) 0.1 Neut # (Auto) 8300 H Lymph # (Auto) 300 L [place] # (Auto) 200 Eos # (Auto) 0 Baso # (Auto) 0 PT INR APTT Sodium 140 Potassium 5.0 D Chloride 106 Carbon Dioxide 25 BUN 17 Creatinine 0.93 Estimated GFR > 60 BUN/Creatinine Ratio 18.3 Glucose 134 H Calcium 7.9 L Total Bilirubin AST ALT Alkaline Phosphatase Total Protein Albumin Globulin Albumin/Globulin Ratio Lipase SARS-CoV-2 (PCR) Negative PFSH Medical History Hypertension (08/19/17) 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) Surgical History No pertinent past surgical history Family History Father Adenomatous polyp of colon Social History marital status: number of children: 2 household members: spouse lives independently: Yes caregiver/support person: No housing: house pets and animals: Yes education level: other (Bachelors Degree) 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.) Previous occupational history: [employer] travel history: recent ([place]) leisure activities: exercise (Running) Smoking Status: Never smoker Tobacco: How many years used: 0 quit status: quit date established (Never Started) second hand exposure: Yes (Childhood) alcohol intake: never substance use type: does not use Assessment & Plan Post-op Postoperative Procedures: Procedures Operation Date: 10/30/21 21:30 Actual Procedure Side Surgeon p Exploratory Laparotomy with small bowel resection Amrik Naylor MD Postoperative status narrative: 50-year-old man postop day 1 status post exploratory laparotomy with small-bowel resection for a small-bowel obstruction. Appears to be recovering appropriately. Echo cardiogram reviewed demonstrates no evidence of thrombus embolic disease ruled out. Nasogastric tube removed. -okay for sips of clears and ice chips -SCDs and Lovenox for VT prophylaxis -await return of bowel function to advance diet -no needs at discharge anticipated
[2021-10-31] MEDS: CITALOPRAM 10 MG TABLET 40 MG PO (16:18)
[2021-10-31] MEDS: buPROPion XL 150 MG TAB PO (16:18)
[2021-10-31] MEDS: AMLODIPINE 5 MG TABLET 10 MG PO (16:19)
--- NOTE | 2021-10-31 17:03 | PC.NURSE ---
Pt resting at intervals Denies discomfort when asked. NG & Keyes cath D/C'd this am. Abd midline incision w/ steri stripes CDI. Sat in chair for awhile this afternoon. SBA to BR , voided 450 franko urine. IVF infusing into LAC as per orders. w/o incidence. Call light w/in reach, pt calls appropriately for needs. Continue w/plan of care.......
--- NOTE | 2021-10-31 22:05 | PC.NURSE ---
Addendum entered by Reynaldo Ortiz R.N. 11/01/21 05:48: Patient states they feel like things are starting to move again in their stomach and is now passing gas. Original Note: Patient states they are feeling better. Pain well controlled. Walking the halls independently. Keeping fluids down without nausea or emesis.
[2021-11-01] VITALS (12 sets, daily range): BP systolic 117–136; BP diastolic 76–84; PULSE 62–80; RESP 18; TEMP 36.9–37.3; O2SAT 96–99
[2021-11-01] MEDS: LACTATED RINGERS 1,000 ML 75 ML IV (00:07)
[2021-11-01 04:39] LABS: Add Manual Diff / Slide Review NO; Basophils Absolute Auto 0 /uL (0-100); Basophils Percent Auto 0.2 % (0-2); Eosinophils Absolute Auto 0 /uL (0-450); Eosinophils Percent Auto 0.4 % (2-4); Hematocrit 35.1 % (41-53); Lymphocytes Absolute Auto 1300 /uL (1100-4500); Lymphocytes Percent Auto 20.1 % (25-40); Mean Corpuscular HGB Conc 34.3 % (30-36); Mean Corpuscular Hemoglobin 29.1 PG (26-34); Mean Corpuscular Volume 84.7 fL (80-100); Monocytes Absolute Auto 600 /uL (0-900); Monocytes Percent Auto 8.9 % (3-14); Neutrophils Absolute Auto 4500 /uL (1500-7000); Neutrophils Percent Auto 70.4 % (50-75); Platelet Count 157 X10^3/uL (150-400); Red Blood Cell Count 4.14 X10^6/uL (4.5-5.9); Red Cell Distribution Width 12.9 % (11.6-14.8); White Blood Cell Count 6.4 X10^3/uL (4.5-11.0)
[2021-11-01 04:51] LABS: Blood Urea Nitrogen 16 mg/dL (9-20); Calcium 7.9 mg/dL (8.4-10.2); Carbon Dioxide 28 mmol/L (22-32); Chloride 108 mmol/L (98-107); Estimated Glomerular Filt Rate > 60 mL/min (>60); Glucose 97 mg/dL (70-100); HEMOLYSIS < 15 (0-50); Potassium 3.7 mmol/L (3.4-5.1); Sodium 139 mmol/L (137-145)
[2021-11-01] MEDS: CITALOPRAM 10 MG TABLET 40 MG PO (08:52)
[2021-11-01] MEDS: buPROPion XL 150 MG TAB PO (08:52)
[2021-11-01] MEDS: ENOXAPARIN 40 MG/0.4 ML SYRINGE SUBCUT (08:52)
--- NOTE | 2021-11-01 09:08 | PM.PNPO.1 ---
Subjective Subjective Date Patient Seen: 11/01/21 Time Patient Seen: 09:08 Interval history: +flatus pain well controlled no nausea Exam Vital Signs (past 8 hours): - 11/01/21 04:00 11/01/21 04:07 11/01/21 08:00 Temperature 98.8 F 99.1 F Pulse Rate 80 80 Respiratory Rate 18 18 Blood Pressure 117/78 128/84 Pulse Oximetry 98 98 98 Oxygen Delivery Method Room Air Oxygen Flow Rate 0 Narrative Exam Narrative: Gen-Adult man alert and oriented Abdomen-soft appropriately tender CDI Objective Labs Result Diagrams: 11/01/21 04:06 11/01/21 04:06 Labs: Laboratory Results - last 24 hr 11/01/21 11/01/21 04:06 04:06 WBC 6.4 RBC 4.14 L Hgb 12.0 L Hct 35.1 L MCV 84.7 MCH 29.1 MCHC 34.3 RDW 12.9 Plt Count 157 Neut % (Auto) 70.4 D Lymph % (Auto) 20.1 L [place] % (Auto) 8.9 Eos % (Auto) 0.4 L Baso % (Auto) 0.2 Neut # (Auto) 4500 Lymph # (Auto) 1300 [place] # (Auto) 600 Eos # (Auto) 0 Baso # (Auto) 0 Sodium 139 Potassium 3.7 D Chloride 108 H Carbon Dioxide 28 BUN 16 Creatinine 0.94 Estimated GFR > 60 BUN/Creatinine Ratio 17.0 Glucose 97 Calcium 7.9 L PFSH Medical History Hypertension (08/19/17) 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) Surgical History No pertinent past surgical history Family History Father Adenomatous polyp of colon Social History marital status: number of children: 2 household members: spouse lives independently: Yes caregiver/support person: No housing: house pets and animals: Yes education level: other (Bachelors Degree) 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 Doing well -Clears advance as tolerated -Anticipate DC tomorrow -SCDs and pLovenox
--- NOTE | 2021-11-01 15:12 | PC.NURSE ---
Pt resting @ intervals SpO2 99% RA Denies discomfort Abdominal incision intact, steri stripes CDI SL LAC intact/patent. Ambulating hallway frequently w/o incidence. Voiding in BR w/o issues. Call light w/in reach, pt calls appropriately for needs. Continue w/plan of care
--- NOTE | 2021-11-01 15:42 | CM.DPC ---
DCP Cont: It is noted that patient is now advanced to clear liquids, per surgeon. Patient could possibly discharge tomorrow if he is able to tolerate diet. P: DCP to continue to follow. Plan is home when stable. Magdalena Sparrow RN/Radiology Nurse
[2021-11-01] MEDS: AMLODIPINE 5 MG TABLET 10 MG PO (17:05)
[2021-11-02 01:13] VITALS: O2SAT 98
--- NOTE | 2021-11-02 03:15 | PC.NURSE ---
Pt condition unchanged and was asleep most of the shift. Pt refuse to wear SCD but was willing to ambulate and at 2030, pt ambulate around nursing station 2X. Pt denies pain while in bed but reports pain at 2 on a 0 to 10 scale at the incision site after ambulation. Pt refuse scheduled Toradol this shift and one prior. Pt reports having gas but no BM. Call light w/in reach and bed alarm is off.
[2021-11-02 05:00] VITALS: BP 129/84; PULSE 80; RESP 18; TEMP 37.2; O2SAT 97
[2021-11-02 05:06] VITALS: O2SAT 97
[2021-11-02 05:43] LABS: Add Manual Diff / Slide Review NO; Basophils Absolute Auto 0 /uL (0-100); Basophils Percent Auto 0.7 % (0-2); Eosinophils Absolute Auto 100 /uL (0-450); Eosinophils Percent Auto 2.3 % (2-4); Hematocrit 36.4 % (41-53); Hemoglobin 12.5 g/dL (13.5-17.5); Lymphocytes Absolute Auto 1400 /uL (1100-4500); Lymphocytes Percent Auto 28.3 % (25-40); Mean Corpuscular HGB Conc 34.3 % (30-36); Mean Corpuscular Hemoglobin 29.2 PG (26-34); Mean Corpuscular Volume 85.2 fL (80-100); Monocytes Absolute Auto 500 /uL (0-900); Monocytes Percent Auto 9.5 % (3-14); Neutrophils Absolute Auto 2900 /uL (1500-7000); Neutrophils Percent Auto 59.2 % (50-75); Platelet Count 166 X10^3/uL (150-400); Red Blood Cell Count 4.28 X10^6/uL (4.5-5.9); Red Cell Distribution Width 12.6 % (11.6-14.8); White Blood Cell Count 4.9 X10^3/uL (4.5-11.0)
[2021-11-02 05:49] LABS: BUN Creatinine Ratio 11.5 (6-22); Blood Urea Nitrogen 10 mg/dL (9-20); Calcium 8.2 mg/dL (8.4-10.2); Carbon Dioxide 28 mmol/L (22-32); Chloride 107 mmol/L (98-107); Estimated Glomerular Filt Rate > 60 mL/min (>60); Glucose 93 mg/dL (70-100); HEMOLYSIS < 15 (0-50); Potassium 3.6 mmol/L (3.4-5.1); Sodium 138 mmol/L (137-145)
[2021-11-02 09:00] VITALS: O2SAT 98
[2021-11-02] MEDS: CITALOPRAM 10 MG TABLET 40 MG PO (09:35)
[2021-11-02] MEDS: buPROPion XL 150 MG TAB PO (09:35)
[2021-11-02] MEDS: ENOXAPARIN 40 MG/0.4 ML SYRINGE SUBCUT (09:35)
[2021-11-02 10:30] VITALS: BP 136/87; PULSE 64; RESP 17; TEMP 36.8; O2SAT 98
[2021-11-02 10:35] VITALS: O2SAT 98
--- NOTE | 2021-11-02 12:30 | PM.DS.1 ---
History of Present Illness History of Present Illness Date Patient Seen: 11/02/21 Time Patient Seen: 12:30 Chief complaint: abd pain x45 min Discharge Providers Provider Date of admission: 10/30/21 21:14 Discharge Date: 11/02/21 Primary care physician: Reynaldo Quispe MD Discharge provider: Hero Caal MD Summary Hospital Course Discharge Diagnosis: Small-bowel infarction Hospital Course: The patient underwent an exploratory laparotomy with small-bowel resection by Dr. Naylor on 10/30/2021. See operative report for details. He did well after surgery and his diet was advanced. He was passing flatus and discharged home on 11/02/2021. Exam Vital Signs (past 8 hours): - 11/02/21 05:00 11/02/21 05:06 11/02/21 09:00 Temperature 98.9 F Pulse Rate 80 Respiratory Rate 18 Blood Pressure 129/84 Pulse Oximetry 97 97 98 11/02/21 10:30 11/02/21 10:35 Temperature 98.3 F Pulse Rate 64 Respiratory Rate 17 Blood Pressure 136/87 Pulse Oximetry 98 98 Oxygen Delivery Method Room Air Oxygen Flow Rate 0 Narrative Exam Narrative: Abdomen soft Incision is clean dry and intact Objective Labs Result Diagrams: 11/02/21 05:30 11/02/21 05:30 Labs: Laboratory Results - last 24 hr 11/02/21 11/02/21 05:30 05:30 WBC 4.9 RBC 4.28 L Hgb 12.5 L Hct 36.4 L MCV 85.2 MCH 29.2 MCHC 34.3 RDW 12.6 Plt Count 166 Neut % (Auto) 59.2 Lymph % (Auto) 28.3 [place] % (Auto) 9.5 Eos % (Auto) 2.3 Baso % (Auto) 0.7 Neut # (Auto) 2900 Lymph # (Auto) 1400 [place] # (Auto) 500 Eos # (Auto) 100 Baso # (Auto) 0 Sodium 138 Potassium 3.6 Chloride 107 Carbon Dioxide 28 BUN 10 Creatinine 0.87 Estimated GFR > 60 BUN/Creatinine Ratio 11.5 Glucose 93 Calcium 8.2 L [facility] Medical History Hypertension (08/19/17) 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) Surgical History No pertinent past surgical history Family History Father Adenomatous polyp of colon Social History marital status: number of children: 2 household members: spouse lives independently: Yes caregiver/support person: No housing: house pets and animals: Yes education level: other (Bachelors Degree) 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 travel history: recent ([place]) leisure activities: exercise (Running) Smoking Status: Never smoker Tobacco: How many years used: 0 quit status: quit date established (Never Started) second hand exposure: Yes (Childhood) alcohol intake: never substance use type: does not use Discharge Plan Discharge Plan Patient Disposition: Home Discharge orders & Medications Prescriptions: New ibuprofen 200 mg tablet 400 mg PO Q6H Qty: 60 0RF docusate sodium [Colace] 100 mg capsule 100 mg PO BID Qty: 30 0RF oxycodone 5 mg tablet See Rx Instructions .ROUTE .COMPLEX PRN (Reason: pain) Qty: 30 0RF Rx Instructions: 1-2 tabs every 6 hrs as needed for pain acetaminophen [Tylenol] 325 mg capsule 650 mg PO QID PRN (Reason: pain) Qty: 60 0RF Continued citalopram 40 mg tablet 40 mg PO QDAY Qty: 90 2RF bupropion HCl 150 mg tablet extended release 24 hr 150 mg PO QAM Qty: 30 7RF amlodipine 10 mg tablet 10 mg PO QPM 0RF Medication counseling provided by Pharmacist: Yes Diet/Activity/Treatments Diet: Diet as Tolerated Skin/Wound/Dressing Care Report to your healthcare provider any signs of infection, such as:: chills, fever, increased pain, unusual drainage and unusual redness Discharge Data Primary Care Provider: Reynaldo Qiuspe
--- NOTE | 2021-11-02 14:45 | PC.NURSE ---
Pt is A&Ox3, VSS, afebrile on RA ambulating independently in the halls. Pt denies wanting pain medications for pain in abdomen 2-09/27. He is passing gas, BS +x4, and voiding without difficulty. MD arrives to bedside this a.m.and clears patient to discharge home after he tolerates breakfast well. He denies increased abdominal pain or n/v. He verbalizes understanding of his discharge medications, activity restrictions and follow up appointment as well as site care. He is escorted by [employer] to private vehicle with his driving for discharge home this a.m. at 1145 a.m.
== END 2021-11-02 11:45 | disposition home or self-care (01) | DRG 329 ==
LOC: ED 21:04 → AC 21:15
PROVIDERS: Admitting Provider Surgery; Emergency Provider Emergency Medicine; PCP Internal Medicine; Referring Provider Emergency Medicine; Visit Provider Surgery
PROC: 0DB80ZZ Excision of Small Intestine, Open Approach (ICD-10-PCS; CPT 49000; principal; 2021-10-30 21:30)
DX: K56.601 Complete intestinal obstruction, unspecified as to cause (principal); K65.9 Peritonitis, unspecified; K55.021 Focal (segmental) acute infarction of small intestine; I10 Essential (primary) hypertension; F32.A Depression, unspecified; Z20.822 Contact with and (suspected) exposure to COVID-19
CPT/HCPCS: 36415; 44120; 74177; 80048; 80053; 83690; 85025; 85610; 85730; 87635; 93307; 94760; 96374; 96375; 96376; 99233; 99284; C9803; J0171; J0330; J1100; J1170; J1650; J1885; J2405; J2543; J2704; J3010; Q9967

== ENCOUNTER 2022-08-30 09:37 | Day surgery (SDC) | payer OTHER, SELFPAY ==
[2021-11-06 16:21] VITALS: BMI 26.5
[2022-08-30 09:46] VITALS: BP 140/87; PULSE 97; RESP 100; TEMP 36.8; O2SAT 16; BMI 31.5
[2022-08-30] MEDS: LACTATED RINGERS 1,000 ML 150 ML IV (10:08)
--- NOTE | 2022-08-30 10:13 | PM.HP.1 ---
History of Present Illness History of Present Illness Date Patient Seen: 08/30/22 Time Patient Seen: 10:16 Chief complaint: Colonoscopy Narrative: First colonoscopy for colon cancer screening, no family history for colon cancer. 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) Surgical History No pertinent past surgical history Family & Social History Family History Father Adenomatous polyp of colon Social History: household members spouse lives independently Yes caregiver/support person No Tobacco & Substance use: Smoking Status Never smoker alcohol intake never Substance Use Type does not use Meds Home Medications and Allergies Home Medications Medication Instructions Recorded Confirmed Type citalopram 40 mg tablet 40 mg PO QDAY #90 tabs 06/04/22 08/23/22 Rx amlodipine 10 mg tablet 10 mg PO QPM #90 tabs 06/10/22 08/23/22 Rx bupropion HCl 150 mg 24 hr tablet, 150 mg PO QAM #90 tabs 08/23/22 08/23/22 Rx extended release hydrochlorothiazide 25 mg tablet 25 mg PO DAILY #90 tabs 08/23/22 08/23/22 Rx Allergies Allergy/AdvReac Type Severity Reaction Status Date / Time No Known Drug Allergies Allergy Verified 08/30/22 09:47 Review of Systems Review of Systems ROS: Yes All systems reviewed with the patient and are negative except as otherwise documented Exam Vital Signs (past 8 hours): - 08/30/22 09:46 Temperature 98.2 F Pulse Rate 97 H Respiratory Rate 100 H Blood Pressure 140/87 Pulse Oximetry 16 L Oxygen Delivery Method Room Air Oxygen Delivery Method Room Air Const General: cooperative and healthy appearing Nutritional Appearance: average body habitus HENTX Head: normocephalic and atraumatic Face and sinus: normal facial exam Eyes General: appearance normal, both eyes and all related structures Neck Neck: trachea midline Chest Chest: normal inspection of the chest Resp Effort & Inspection: normal respiratory effort and able to speak in complete sentences Cardio Rate: regular rate Rhythm: regular rhythm GI Palpation: soft Skin General: turgor normal Neuro General: patient alert, patient awake and patient oriented x3 Cognition: normal cognition Psych Appearance: grossly normal Judgment: judgment good Assessment & Plan Assessment & Plan narrative: colon cancer screening using colonoscopy and MAC Time Spent With Patient Time with patient: less than 30 minutes Critical Care time: I spent a total of [] minutes of critical care time on this patient's care today; this time is exclusive of procedural time.
--- NOTE | 2022-08-30 10:19 | PM.OP.COLON ---
Operative Date/Time/Diagnoses Date of procedure: 08/30/22 Time of procedure: 10:19 Pre-op diagnosis: colon cancer screening Post-op diagnosis: same Procedure & Clinicians Study performed: Colonoscopy with MAC Same procedure as scheduled: Yes Indications: Colon cancer screening Surgeon: Marta Alvarado Procedure Notes Procedure in detail: Preop diagnosis: Colon cancer screening Postop diagnosis: Same Operative procedure: Colonoscopy using MAC Surgeon: Celina Alvarado MD Findings: Normal colonoscopy. No polyps, no diverticulosis Procedure: Patient placed in lateral position. Rectal exam performed showing normal tone no masses. Colonoscope inserted into the rectum and advanced to ileocecal valve with minimal difficulty. Insufflation extraction scope and the above findings. Retroflex was included in the rectum Impression: No polyps or diverticulosis. Plan: Repeat colonoscopy in 10 years unless otherwise indicated by change in clinical condition or family history Specimen(s): none sent Complications: none Post-procedure Recommendations: Colonoscopy in 10 years
[2022-08-30 10:50] VITALS: BP 104/65; BP 98/56; PULSE 74; PULSE 77; RESP 12; RESP 16; TEMP 36.6; O2SAT 98; O2SAT 99
[2022-08-30 11:05] VITALS: BP 115/73; PULSE 75; RESP 12; TEMP 36.1; O2SAT 100
[2022-08-30 11:22] VITALS: BP 114/81; PULSE 76; RESP 16; TEMP 36.1; O2SAT 99
== END 2022-08-30 11:23 | disposition home or self-care (01) ==
PROVIDERS: PCP Internal Medicine; Referring Provider Surgery; Visit Provider Surgery
PROC: 0DJD8ZZ Inspection of Lower Intestinal Tract, Via Natural or Artificial Opening Endoscopic (ICD-10-PCS; CPT 45378; principal; 2022-08-30 10:45)
DX: Z12.11 Encounter for screening for malignant neoplasm of colon (principal)
CPT/HCPCS: 45378; J2704

== ENCOUNTER → 2022-09-13 07:55 | Outpatient (CLI) | payer OTHER, SELFPAY ==
[2021-11-06 16:21] VITALS: BMI 26.5
[2022-09-13 09:12] LABS: Alanine Aminotransferase 27 IU/L (<50); Albumin 4.4 g/dL (3.5-5.0); Albumin Globulin Ratio 1.6 (1.0-2.8); Alkaline Phosphatase 58 U/L (38-126); Aspartate Aminotransferase 27 IU/L (17-59); BUN Creatinine Ratio 17.4 (6-22); Bilirubin Total 0.9 mg/dL (0.2-1.3); Blood Urea Nitrogen 16 mg/dL (9-20); Calcium 8.7 mg/dL (8.4-10.2); Carbon Dioxide 30 mmol/L (22-32); Chloride 94 mmol/L (98-107); Cholesterol 217 mg/dL (140-199); Estimated Glomerular Filt Rate > 60 mL/min (>60); Globulin 2.7 g/dL (1.7-4.1); Glucose 85 mg/dL (70-100); HDL Cholesterol 54 mg/dL (40-60); HEMOLYSIS < 15 (0-50); LDL Cholesterol Calculated 148 mg/dL (<100); Potassium 3.3 mmol/L (3.4-5.1); Sodium 134 mmol/L (137-145); Total Protein 7.1 g/dL (6.3-8.2); Triglycerides 74 mg/dL (35-150)
== END ==
PROVIDERS: PCP Internal Medicine; Referring Provider Internal Medicine; Visit Provider Internal Medicine
DX: I10 Essential (primary) hypertension (principal); Z13.6 Encounter for screening for cardiovascular disorders
CPT/HCPCS: 36415; 80053; 80061

== ENCOUNTER → 2023-10-03 07:53 | Outpatient (CLI) | payer OTHER, SELFPAY ==
[2021-11-06 16:21] VITALS: BMI 26.5
[2023-10-03 08:46] LABS: Alanine Aminotransferase 24 IU/L (<50); Albumin 4.1 g/dL (3.5-5.0); Albumin Globulin Ratio 1.5 (1.0-2.8); Alkaline Phosphatase 57 U/L (38-126); Aspartate Aminotransferase 26 IU/L (17-59); BUN Creatinine Ratio 16.7 (6-22); Bilirubin Total 0.7 mg/dL (0.2-1.3); Blood Urea Nitrogen 15 mg/dL (9-20); Calcium 8.9 mg/dL (8.4-10.2); Carbon Dioxide 26 mmol/L (22-32); Chloride 104 mmol/L (98-107); Cholesterol 197 mg/dL (140-199); Estimated Glomerular Filt Rate > 60 mL/min (>60); Globulin 2.8 g/dL (1.7-4.1); Glucose 94 mg/dL (70-100); HDL Cholesterol 51 mg/dL (40-60); HEMOLYSIS < 15 (0-50); LDL Cholesterol Calculated 128 mg/dL (<100); Magnesium 1.8 mg/dL (1.6-2.3); Sodium 136 mmol/L (137-145); Total Protein 6.9 g/dL (6.3-8.2); Triglycerides 89 mg/dL (35-150)
== END ==
LOC: LAB 07:54
PROVIDERS: PCP Internal Medicine; Referring Provider Internal Medicine; Visit Provider Internal Medicine
DX: I10 Essential (primary) hypertension (principal); E78.2 Mixed hyperlipidemia; E87.6 Hypokalemia
CPT/HCPCS: 36415; 80053; 80061; 83735